=== PATIENT | female | born 1970 | race Two or more races ===

== ENCOUNTER 2020-12-12 16:24 | Emergency (ER) | payer MEDICAID, OTHER ==
[~2020-12-12] VITALS: Ht 162.6 cm; Wt 163.3 kg
[2020-12-12 19:43] VITALS: BP 149/81
== END 2020-12-12 19:47 | disposition home or self-care (01) ==
LOC: ER 16:29
DX: S80.811A Abrasion, right lower leg, initial encounter (principal); I89.0 Lymphedema, not elsewhere classified; X58.XXXA Exposure to other specified factors, initial encounter; Y93.89 Activity, other specified; Y92.89 Other specified places as the place of occurrence of the external cause; Y99.8 Other external cause status